=== PATIENT | male | born 1955 | race Caucasian/White ===

== ENCOUNTER 2018-04-19 13:21 | Emergency (ER) | payer OTHER, MEDICAID ==
[2018-04-19] MEDS: LIDOCAINE WITH 8.4% SOD BICARB 3 ML DISP.SYRIN. INJ (14:49)
[2018-04-19] MEDS: DIPHTH,PERTUSS(ACELL),TET TOX 0.5 ML DISP.SYRIN. VAX IM (14:49)
[2018-04-19] MEDS: MORPHINE SULFATE 10 MG/ML VIAL. IV (15:05)
[2018-04-19] MEDS: HYDROcodone/APAP 5/325MG 1 TAB TABLET PO (16:56)
== END 2018-04-19 18:58 | disposition short-term general hospital (02) ==
LOC: ER 18:58
DX: S02.31XA Fracture of orbital floor, right side, initial encounter for closed fracture (principal); S02.19XA Other fracture of base of skull, initial encounter for closed fracture; S05.31XA Ocular laceration without prolapse or loss of intraocular tissue, right eye, initial encounter; M54.2 Cervicalgia; M25.512 Pain in left shoulder; E78.00 Pure hypercholesterolemia, unspecified; I10 Essential (primary) hypertension; I25.2 Old myocardial infarction; Z95.1 Presence of aortocoronary bypass graft; V87.8XXA Person injured in other specified noncollision transport accidents involving motor vehicle (traffic), initial encounter; Y93.89 Activity, other specified; Y92.89 Other specified places as the place of occurrence of the external cause; Y99.8 Other external cause status
CPT/HCPCS: 12011; 70450; 70486; 72125; 73030; 90471; 90715; 96374; 99285-25; J2270